=== PATIENT | female | born 1950 | race Caucasian/White ===

== ENCOUNTER 2016-12-06 07:38 | Day surgery (SDC) | payer MEDICAID ==
[~2016-12-06 07:38] MED LIST: ACETAMINOPHEN 325 MG TABLET PO PRN; ACETYLCHOLINE CHLORIDE 20 DROP KIT IO PRN; BUPIVACAINE HCL/PF 30 ML VIAL IJ PRN; CYCLOPENTOLATE HCL 20 DROP BTL RIGHTEYE PRN; DEXTROSE 5%-0.5 NORMAL SALINE 1,000 ML IV PRN; EPINEPHrine 1 MG/ML AMPUL IO PRN; HYALURONATE SODIUM 0.4 ML DISP.SYRIN IO PRN; HYALURONATE SODIUM 0.85 ML DISP.SYRIN IO PRN; LIDOCAINE HCL/PF 200 MG/5 ML AMPUL TP PRN; LIDOCAINE HCL/PF 5 ML VIAL IO PRN; NORMAL SALINE 3 ML BOX IV PRN; TETRACAINE HCL 150 DROP BTL OP PRN
[2016-12-06] MEDS: TROPICAMIDE 150 DROP BTL RIGHTEYE PRN ×3 (07:55→08:23)
[2016-12-06] MEDS: PHENYLEPHRINE HCL 50 DROP BTL RIGHTEYE PRN ×3 (07:55→08:23)
[2016-12-06] MEDS ORDERED: RINGER'S SOLUTION,LACTATED 1,000 ML IV ONE ×2 (08:00→08:40)
[2016-12-06 10:23] VITALS: BP 132/68
== END 2016-12-06 07:39 | disposition home or self-care (01) ==
LOC: AMB 07:38
PROVIDERS: ATTEND Ophthalmology
PROC: 08RJ3JZ Replacement of Right Lens with Synthetic Substitute, Percutaneous Approach (ICD-10-PCS; principal; 2016-12-06 08:45)
DX: H26.8 Other specified cataract (principal); E11.9 Type 2 diabetes mellitus without complications; I10 Essential (primary) hypertension; F17.200 Nicotine dependence, unspecified, uncomplicated; Z68.26 Body mass index [BMI] 26.0-26.9, adult

== ENCOUNTER 2019-01-03 06:30 | Inpatient (IN) ==
--- NOTE | 2018-12-27 08:33 | ANES ---
Anesthesia Pre Procedure Eval HOME MEDICATIONS aspirin 325 mg tablet,delayed release 325 mg PO DAILY tab 11/03/17 [Last Taken 11/15/17] cholecalciferol (vitamin D3) 2,000 unit capsule 4,000 unit PO DAILY cap 11/03/17 [Last Taken 11/15/17] melatonin 5 mg capsule 5 mg PO .bedtime cap 11/03/17 [Last Taken 11/15/17] metformin 500 mg tablet 1,000 mg PO BID #360 tab 12/12/17 [Last Taken Unknown] glimepiride 4 mg tablet 4 mg PO DAILY #90 tab 07/05/18 [Last Taken Unknown] albuterol sulfate HFA 90 mcg/actuation aerosol inhaler 2 puff IH QID PRN #3 ea 08/08/18 [Last Taken Unknown] latanoprost 0.005 % eye drops 1 drp OP BID #25 ml 09/12/18 [Last Taken Unknown] lisinopril 10 mg-hydrochlorothiazide 12.5 mg tablet See Rx Instructions .ROUTE .COMPLEX #90 tablet 11/22/18 [Last Taken Unknown] cephalexin 500 mg capsule 500 mg PO BID PRN 12/14/18 [Last Taken Unknown] Allergies/Adverse Reactions: Allergies Allergy/AdvReac Type Severity Reaction Status Date / Time hydrocodone [From Vicodin] AdvReac Intermediate hallucinati Verified 12/14/18 11:30 ons oxycodone AdvReac Intermediate "loopy" Verified 12/14/18 11:30 - Planned Procedure Planned Procedure: Right Total Knee Arthroplasty Medication List Reviewed:: Yes Allergies Verified: Yes Medical History (Updated 12/14/18 @ 11:28 by Luiz Rivera MD) Osteoarthritis of knee (Chronic) Hypertension (Chronic) Onset Date: Unknown DJD (degenerative joint disease) (Chronic) Onset Date: Unknown left hip Diabetic retinopathy (Chronic) Onset Date: ~01/2009 dx w/non-proliferative diabetic retinopathy, mild, by dilated exam Diabetes mellitus (Chronic) Onset Date: Unknown Asthma Onset Date: Unknown Endometrial cancer Onset Date: ~1991 Osteoporosis Onset Date: ~2018 Vitamin D deficiency Onset Date: Unknown Insomnia Onset Date: ~03/18/09 Malignant neoplasm of endocervix Onset Date: Unknown Surgical History (Updated 06/28/18 @ 11:39 by Majo Larkin RN) History of colonoscopy Onset Date: 09/25/10 09/25/1062-[id number]. History of endometrial biopsy Onset Date: ~1989 History of excision of epidermal inclusion cyst Onset Date: 11/16/17 Armaan-right groin History of hip replacement Onset Date: 05/18/11 [place]-left History of hysterectomy Onset Date: ~1990 ADDI BSO History of incision and drainage Onset Date: 10/12/17 10/12/17 Riccardo-right inner thigh History of total knee replacement Onset Date: 05/18/11 left history of removal kidney stone Onset Date: Unknown stent Onset Date: 10/19/13 [facility]UDE TE[facility] and stenting of mid portion right superficial femoral artery Family History (Updated 12/05/18 @ 14:56 by Belkis Chaves LPN) Father , age [id number] type Heart disease Cancer prostate ca Aneurysm Hernia Mother , age 76-punctured lung Hypertension Alzheimers disease punctured lung Grandfather Cancer Grandmother Cancer Aunt Cancer Uncle Cancer Brother Alive and well - Family Anesthesia History Family History:: no untoward family reactions to anesthesia - Airway/Neck/Teeth Teeth Condition: missing Denture Type: None - Respiratory Respiratory History: asthma Smoking Status: Current every day smoker Discussed smoking cessation including day of surgery: Yes Sleep Apnea currently treated: No Sleep Apnea by current assessment: No - Cardiovascular Cardiac History: hypertension Tolerate Activity: Fair - Anesthesia Assessment and Plan ASA Class: PS, III Anesthesia Type Plan: General LMA Planned difficult intubation/equipment available: No - adductor canal block for postop analgesia. Pt requests general anesthesia
[~2019-01-03 06:30] MED LIST changes: -ACETAMINOPHEN 325 MG TABLET PO PRN; -ACETYLCHOLINE CHLORIDE 20 DROP KIT IO PRN; -BUPIVACAINE HCL/PF 30 ML VIAL IJ PRN; -CYCLOPENTOLATE HCL 20 DROP BTL RIGHTEYE PRN; -DEXTROSE 5%-0.5 NORMAL SALINE 1,000 ML IV PRN; -EPINEPHrine 1 MG/ML AMPUL IO PRN; -HYALURONATE SODIUM 0.4 ML DISP.SYRIN IO PRN; -HYALURONATE SODIUM 0.85 ML DISP.SYRIN IO PRN; -LIDOCAINE HCL/PF 200 MG/5 ML AMPUL TP PRN; -LIDOCAINE HCL/PF 5 ML VIAL IO PRN; +MORPHINE SULFATE 15 MG TABLET.SA PO PRN; -NORMAL SALINE 3 ML BOX IV PRN; +RINGER'S SOLUTION,LACTATED 1,000 ML IV PRN; +ROPIVACAINE HCL/PF 100 MG, EPINEPHrine 0.2 MG, KETOROLAC TROMETHAMINE 30 MG in NORMAL S... IJ PRN; -TETRACAINE HCL 150 DROP BTL OP PRN; +TRANEXAMIC ACID 1,000 MG in NORMAL SALINE 100 ML IV PRN; +ceFAZolin SODIUM 1 GM VIAL IV PRN
[2019-01-03] MEDS ORDERED: INSULIN REGULAR, HUMAN 100 UNITS/ML VIAL IV ONE (07:23)
[2019-01-03] MEDS ORDERED: MORPHINE SULFATE 15 MG TABLET.SA PO ONE (07:30)
[2019-01-03] MEDS ORDERED: PROCHLORPERAZINE EDISYLATE 5 MG/ML VIAL IV PRN (07:37)
[2019-01-03] MEDS ORDERED: ONDANSETRON HCL/PF 2 MG/ML VIAL IV PRN ×2 (07:37→09:24)
[2019-01-03] MEDS ORDERED: HYDROmorphone HCL 2 MG/ML VIAL IV PRN (07:37)
[2019-01-03] MEDS ORDERED: NALOXONE HCL 0.4 MG/ML VIAL IV PRN (07:37)
[2019-01-03] MEDS ORDERED: diphenhydrAMINE HCL 50 MG/ML VIAL IV PRN ×2 (07:37→09:24)
[2019-01-03] MEDS ORDERED: MAGNESIUM HYDROXIDE 30 ML UDC PO PRN (09:24)
[2019-01-03] MEDS ORDERED: MAG HYDROX/ALUMINUM HYD/SIMETH 30 ML UDC PO PRN (09:24)
[2019-01-03] MEDS ORDERED: RINGER'S SOLUTION,LACTATED 1,000 ML IV PRN (09:24)
[2019-01-03] MEDS ORDERED: MORPHINE SULFATE 2 MG/ML DISP.SYRIN IV PRN (09:24)
[2019-01-03] MEDS ORDERED: ACETAMINOPHEN 500 MG TABLET PO PRN (09:24)
[2019-01-03] MEDS ORDERED: ZOLPIDEM TARTRATE 5 MG TABLET PO PRN (09:24)
[2019-01-03] MEDS ORDERED: MORPHINE SULFATE 10 MG/0.5 ML SYRINGE PO PRN (09:24)
[2019-01-03] MEDS ORDERED: ALBUTEROL SULFATE 2.5 MG/0.5 ML VIAL.NEB IH PRN (09:26)
--- NOTE | 2019-01-03 09:29 | OR ---
Operative Report - Dictated Report Narrative: Date: 01/03/2019 Preoperative diagnosis: Right knee degenerative joint disease. Postoperative diagnosis: Right knee degenerative joint disease. Procedure: Right total knee arthroplasty. Surgeon: Luiz Rivera M.D. Guzzler Builder: Darrel Colon PA-C (provided and essential set of skilled, educated hands that assisted with transfer, positioning, prepping, draping, manipulation, retraction, placement of jigs, injection, insertion of implants, irrigation, closure wounds, and dressings all of which could not be performed by the available surgical crew) Anesthesia: Spinal with regional block and local periarticular joint injection. Complications: None Specimens: Bone. Estimated blood loss: Minimal. Tourniquet time: 90 Minutes at 300 millimeters of mercury. Retained implants: Depuy Attune size 5 narrow right lugged cemented posterior stabilized femoral component. Size 4 fixed-bearing cemented tibial platform. 5 by 5 millimeter posterior stabilized cross-linked tibial insert. 35 millimeter medialized patella button. Indications: Mrs. Whelan is a 68-year-old female who has had long-standing right knee pain and arthrosis. This patient was followed in my clinic for period of time with significant complaints of right knee pain consistent with arthritic changes. She had failed conservative measures including, but not limited to, activity modification, passage of time, medications, and other conservative measures. Patient wished to proceed with surgical treatment. The risks, benefits, and alternatives were discussed in clinic. The risks of , blood clots, bleeding, infection, nerve/tendon blood vessel/ injury, malposition of components, intraoperative fracture, postoperative limited range of motion, persistent pain, failure of components, and need for additional procedures. Patient wished to proceed consent was obtained after answering all questions. Procedure: After marking the correct extremity on the floor, the patient was taken to the operating room. A timeout was performed. IV antibiotics consisting of Ancef were administered prior to the procedure. A regional followed by spinal anesthetic was induced by anesthesia, per my request, on the operative table with all bony prominences well-padded. Nash catheter was placed, and a bump was placed under the operative side buttock. SCDs and MARY hose were utilized on the nonoperative leg. A well-padded tourniquet was applied to the operative thigh. The operative leg was then pre-scrubbed with alcohol, prepped, and draped in a standard sterile fashion. After exsanguinating the extremity with an Esmarch bandage, the tourniquet was inflated. After marking out the anterior knee for standard incision centered over the patella, the skin was incised and dissected down to the joint retinaculum. The joint retinaculum was marked out as well as the horizontal axis of the patella, and a standard medial parapatellar arthrotomy was then made. The most proximal aspect of the quadriceps tendon and the patella tendon insertion were protected from release. A partial synovectomy was performed as well as a resection of the infrapatellar fat pad. The distal femoral fat pad proximal to the trochlea was also resected using cautery. The soft tissues were elevated off the medial aspect of the proximal tibia using a Crain elevator ensuring that we did not transect the medial collateral ligament. Upon initial evaluation range of motion was approximately 0 degrees to 130 degrees of flexion. There were signs of advanced arthrosis in the medial and patellofemoral joint spaces. There were large marginal osteophytes which were removed with a rongeur. The knee was hyperflexed and the patella was tucked laterally. Protecting the surrounding soft tissues with Homans, an entry drill was placed down the femoral canal using Whitesides line for guidance into the entry point. The intramedullary femoral alignment davion was utilized in order to cut the distal femur in 5 degrees of valgus resecting 10 millimeters of bone. Next the distal femur was sized to a size 5. A posterior referencing guide was utilized to place the distal femoral cutting block in 3 degrees of external rotation. This was pinned into place. The rotation was confirmed both visually and based on anatomic landmarks. The 4 in 1 cutting jig of the appropriate size was utilized in order to make all bony cuts. The angle wing was used to ensure no notching. Retractors were utilized in order to protect surrounding soft tissues. This cut did not result in any excessive notching. We then cut the box centered over the distal femur. This allowed for resection of the anterior and posterior cru ciate ligaments. I then turned my attention to the preparation of the tibia. Using an extra medullary tibial alignment davion, 3 millimeters of bone was resected off the medial articular surface. This was made perpendicular to the mechanical axis of the joint with the alignment davion centered over the ankle mortise. The alignment davion was checked and was noted to be parallel to the mechanical axis, centered over the medial one third of the tibial tubercle, paralleling the anterior surface of the tibia. We then turned our attention to the remaining meniscus and soft tissues. These were removed while protecting the surrounding ligaments and soft tissues. The marginal osteophytes off the anterior, posterior, medial, lateral aspects of the femur and tibia were removed. The tibia was sized out to a size 4. Next the tibia was drilled and punched in an externally rotated position. Next the trial femur and a series of tibial inserts were utilized in order to allow for full extension and maximal flexion. It was found that a 5 millimeter insert gave the best range of motion and stability at multiple flexion points as well as at full extension there was less than 2 mm of gapping both medially and laterally. There is minimal anterior translation with the knee at 90 degrees of flexion and no signs of being able to dislocate the knee. The patella was then prepared. The initial thickness was 21 millimeters. This was reamed down to 12 millimeters parallel to the anterior surface of the patella. It was sized out to a size 35 medialized patella button. This was then drilled and trialed. Without any medial restraint the patella tracked appropriately and did not sublux or dislocate. At this point, it was felt these were the appropriate sized implants, and all trials were removed. The standard periarticular joint injection consisting of ropivacaine, Toradol, and epinephrine were injected into the periarticular joint tissues. The bony surfaces were thoroughly irrigated with a pulsatile-suction saline irrigation device. A bone plug from the prior resected anterior chamfer cut was placed into the drill hole at the distal femur. The bony surfaces were then dried in preparation for placement of the implants. The cement was vacuum mixed per the trawl net maker's instructions. The cement was placed on the dry bony surfaces and posterior aspect of the implants. The implants were impacted into place, removing all extruded cement. At this point anesthesia administered tranexamic acid per protocol intravenously. The knee was placed in extension with axial loading with the trial insert while the cement cured. Once the cement cured, all remaining extruded cement was removed. The knee was placed through a range of motion with the trial insert to ensure appropriate range of motion and stability. Final range of motion was approximately 0 to 130 degrees. The knee was again thoroughly irrigated with pulsatile saline lavage. The final polyethylene insert was then impacted into place ensuring no retained soft tissues. The remaining periarticular joint injection was injected. A medium Hemovac drain was placed exiting superior laterally. The knee was then placed over a triangle and the arthrotomy was closed with interrupted #1 Vicryl after thoroughly irrigating the joint. The deep and subcutaneous tissues were closed with interrupted 0 and 3-0 Vicryl respectively. Skin was closed with a running subcutaneous 3-0 Monocryl and Prineo Dermabond dressing. 4 x 4's, Sof-Rol, and a full leg Cruz wrap were applied. All sponge, needle, blade, and instrument counts were correct prior to closing the wounds. Postoperative condition: The patient was awoken and transferred to the postanesthesia care unit in stable condition. Plan is to be admitted to the inpatient medical/surgical floor postoperatively for 24 hours of IV antibiotics, physical therapy, occupational therapy, and medical comanagement. Patient will be weightbearing as tolerated with range of motion as tolerated. DVT prophylaxis will be with SCDs, MARY hose, and pharmacological anticoagulation. Anticipated hospital stay is approximately 1-3 days.
[2019-01-03] MEDS ORDERED: NON-FORMULARY 1 DOSE DOSE (Lisinopril/Hydrochlorothiazide [Lisinopril-Hctz 10-12.5 Mg Tab] PO SCH (09:30)
--- NOTE | 2019-01-03 09:52 | ANES ---
Post Anesthesia Discharge - Transfer of Care Transfer of Care handoff given to nurse: Yes - Discharge from PACU Discharge from PACU when meets criteria: Yes - Discharge to ASU Discharge to ASU-no complications/pt stable: Yes
--- NOTE | 2019-01-03 10:08 | ANES ---
Post Anesthesia Assessment - Vital Signs Vitals: Last Vital Signs Temp 36.7 C 01/03/19 10:05 Pulse 91 01/03/19 10:05 Resp 22 H 01/03/19 10:05 BP 149/63 01/03/19 10:05 Pulse Ox 100 01/03/19 10:05 Airway Patency: Normal - Mental Status Level Of Consciousness: Awake - Pain Level Pain Score: 0 - N/V Assessment Nausea/Vomiting Presence: None Dehydration:: No
[2019-01-03] MEDS: KETOROLAC TROMETHAMINE 15 MG/ML VIAL IV SCH ×3 (10:30→22:36)
[2019-01-03] MEDS: ceFAZolin SODIUM 1 GM in DEXTROSE 5 % IN WATER 100 ML IV SCH ×6 (10:31→22:37)
[2019-01-03] MEDS: HYDROCHLOROTHIAZIDE 12.5 MG CAPSULE PO SCH (10:32)
[2019-01-03] MEDS: LISINOPRIL 10 MG TABLET PO SCH (10:33)
[2019-01-03] MEDS: SENNOSIDES/DOCUSATE SODIUM 1 TAB TABLET PO SCH (20:57)
[2019-01-03] MEDS: LATANOPROST 25 DROP BTL OP SCH (20:58)
[2019-01-03] MEDS: MORPHINE SULFATE 15 MG TABLET.SA PO SCH (20:58)
[2019-01-04] MEDS: KETOROLAC TROMETHAMINE 15 MG/ML VIAL IV SCH ×4 (04:33→22:49)
[2019-01-04 05:25] LABS: Hematocrit 40.3 % (37.0-47.0); Hemoglobin 13.3 gm/dL (12.5-16.0); Mean Cell Volume 93.5 fl (78-100); Mean Corpuscular Hemoglobin 30.9 pg (27-31); Mean Platelet Volume 11.1 fl (8-12.5); Platelet Count 230 K/mm3 (150-450); Red Blood Count 4.31 M/mm3 (4.2-5.4); Red Cell Distribution Width 13.5 % (11.5-14.0); White Blood Count 12.7 K/mm3 (4.0-10.5)
[2019-01-04 05:31] LABS: BUN/Creatinine Ratio 14.4 (9.0-21.6); Calcium * 8.6 mg/dL (7.9-10.9); Estimated Creat Clear 50.1
[2019-01-04] MEDS: GLIMEPIRIDE 4 MG TABLET PO SCH (07:07)
[2019-01-04] MEDS: ENOXAPARIN SODIUM 40 MG/0.4 ML SYRG SC SCH (08:24)
[2019-01-04] MEDS: LISINOPRIL 10 MG TABLET PO SCH (08:25)
[2019-01-04] MEDS: HYDROCHLOROTHIAZIDE 12.5 MG CAPSULE PO SCH (08:25)
[2019-01-04] MEDS: CHOLECALCIFEROL 1,000 UNIT CAPSULE PO SCH (08:25)
[2019-01-04] MEDS: LATANOPROST 25 DROP BTL OP SCH ×2 (08:26→20:49)
[2019-01-04] MEDS: MORPHINE SULFATE 15 MG TABLET.SA PO SCH ×2 (08:34→20:47)
[2019-01-04] MEDS ORDERED: CALCIUM CARBONATE 500 MG TAB.CHEW PO PRN (12:01)
--- NOTE | 2019-01-04 16:35 | PN ---
Subjective - Date and Time Seen Date: 01/04/19 Time: 07:45 Subjective Narrative: Subjective: Reports minimal pain. Was able to get up to the chair with therapy. Pain is well-controlled. Voiding without any complications. Tolerating by mouth intake. Denies any nausea or vomiting. Denies calf pain. Slept well. Physical exam: Alert and oriented to person, place and time Right lower extremity: Palpable dorsalis pedis pulse. Sensation grossly intact to light touch. Dressings clean and dry. Able to flex and extend ankle and toes. No excessive drainage. Calf and thigh are soft and nontender. Assessment: Postop day 1 status post right total knee arthroplasty. Plan: Due to the need for pain control, post-operative limited mobility, protection of the surgical site and joint, monitoring of the wound, and the management of chronic medical conditions, she requires continued inpatient care. Continue with physical and occupational therapy weightbearing as tolerated. Continue with anticoagulation. 24 hours postoperative prophylactic antibiotics. Pain control with goal to rely on oral medications. Continue bowel regimen. Will need 6 weeks with walker or assitive device to protect joint while ambulating during the recovery process. Discharge planning. Discontinue Nash catheter. She was having some heartburn type symptoms and Tums will be started. We are looking into skilled therapy at a nursing facility on Tuesday if available. Objective - Vitals Vitals: Last Vital Signs Temp 36.8 C 01/04/19 13:44 Pulse 82 01/04/19 13:44 Resp 20 01/04/19 13:44 BP 122/59 01/04/19 13:44 Pulse Ox 96 01/04/19 13:44 - Abnormal Lab Findings Abnormal Lab Findings: Abnormal Lab Results 01/04/19 01/04/19 Range/Units 05:23 05:23 WBC 12.7 H (4.0-10.5) K/mm3 Est GFR (Non-Af Amer) 56 L (60-130) mL/min Random Glucose 155 H (70-110) mg/dL Cauti Physician Documentation - Urinary Catheter Management Urethral (Nash) Date of Insertion: 01/03/19 Time of Insertion: 07:50 Date of Removal: 01/04/19 Time of Removal: 07:10 Assessment/Plan - Problems/Diagnosis (1) Status post total right knee replacement Problem: Acute (2) Acute blood loss anemia Problem: Acute (3) Diabetes mellitus Problem: Chronic (4) Diabetic retinopathy Problem: Chronic (5) Hypertension Problem: Chronic (6) Asthma Problem: Chronic (7) Insomnia Problem: Chronic (8) Cervical cancer Problem: Chronic
[2019-01-04] MEDS: SENNOSIDES/DOCUSATE SODIUM 1 TAB TABLET PO SCH (20:47)
[2019-01-05] MEDS: KETOROLAC TROMETHAMINE 15 MG/ML VIAL IV SCH (04:39)
[2019-01-05] MEDS: GLIMEPIRIDE 4 MG TABLET PO SCH (06:47)
[2019-01-05] MEDS: ENOXAPARIN SODIUM 40 MG/0.4 ML SYRG SC SCH (09:40)
[2019-01-05] MEDS: CHOLECALCIFEROL 1,000 UNIT CAPSULE PO SCH (09:42)
[2019-01-05] MEDS: HYDROCHLOROTHIAZIDE 12.5 MG CAPSULE PO SCH (09:45)
[2019-01-05] MEDS: LISINOPRIL 10 MG TABLET PO SCH (09:45)
[2019-01-05] MEDS: LATANOPROST 25 DROP BTL OP SCH ×2 (09:46→22:43)
[2019-01-05] MEDS: MORPHINE SULFATE 15 MG TABLET.SA PO SCH ×2 (09:48→22:54)
[2019-01-05] MEDS ORDERED: ONDANSETRON HCL 4 MG TABLET PO PRN (12:36)
--- NOTE | 2019-01-05 14:17 | PN ---
Subjective - Date and Time Seen Date: 01/05/19 Time: 15:35 Subjective Narrative: Subjective: Reports minimal pain. Was able to walk in the esparza with therapy. Pain is well-controlled. Voiding without any complications. Tolerating by mouth intake. Had an episode of nausea and vomiting. Denies calf pain. Slept well. Physical exam: Alert and oriented to person, place and time Right lower extremity: Palpable dorsalis pedis pulse. Sensation grossly intact to light touch. Able to flex and extend ankle and toes. No excessive drainage. Calf and thigh are soft and nontender. Assessment: Postop day 2 status post right total knee arthroplasty. Plan: Due to the need for pain control, post-operative limited mobility, protection of the surgical site and joint, monitoring of the wound, and the management of chronic medical conditions, she requires continued inpatient care. Continue with physical and occupational therapy weightbearing as tolerated. Continue with anticoagulation. Pain control with goal to rely on oral medications. Continue bowel regimen. Will need 6 weeks with walker or assitive device to protect joint while ambulating during the recovery process. Discharge planning. We are looking into skilled therapy at a nursing facility on Tuesday if available. Objective - Vitals Vitals: Last Vital Signs Temp 37.2 C 01/05/19 13:53 Pulse 93 01/05/19 13:53 Resp 16 01/05/19 13:53 BP 122/54 01/05/19 13:53 Pulse Ox 95 01/05/19 13:53 Cauti Physician Documentation - Urinary Catheter Management Urethral (Nash) Date of Insertion: 01/03/19 Time of Insertion: 07:50 Date of Removal: 01/04/19 Time of Removal: 07:10 Assessment/Plan - Problems/Diagnosis (1) Status post total right knee replacement Problem: Acute (2) Acute blood loss anemia Problem: Acute (3) Diabetes mellitus Problem: Chronic (4) Diabetic retinopathy Problem: Chronic (5) Hypertension Problem: Chronic (6) Asthma Problem: Chronic (7) Insomnia Problem: Chronic (8) Cervical cancer Problem: Chronic
[2019-01-05] MEDS: SENNOSIDES/DOCUSATE SODIUM 1 TAB TABLET PO SCH (22:43)
--- NOTE | 2019-01-06 06:42 | DS ---
(1) Diabetes mellitus Problem: Chronic (2) Status post total right knee replacement Problem: Acute (3) Acute blood loss anemia Problem: Acute (4) Asthma Problem: Chronic (5) Hypertension Problem: Chronic (6) DJD (degenerative joint disease) Problem: Chronic (7) Diabetic retinopathy Problem: Chronic Date of Discharge:: 01/06/19 Description of Stay: Mrs. Mari was admitted to the floor after undergoing a right total knee arthroplasty. Tolerated this well. Was admitted to the floor postoperatively for 24 hours of IV antibiotics, pain control, medical comanagement, and occupational and physical therapy. OT and PT were consulted to assist with activities of daily living and ambulation. Was made weightbearing as tolerated with range of motion as tolerated. Pain was initially controlled with IV regimen. This was transitioned to oral once tolerating a by mouth intake. Was resumed on home diet and medications. Had a Nash catheter inserted and the operating room which was discontinued on postoperative day 1. A drain was plac ed intraoperatively into the knee which was discontinued on postoperative day 1. Lovenox SCD and MARY hose were utilized for DVT prophylaxis. Vital signs remained stable to the hospital course. Serial labs were obtained which showed a final hemoglobin of 12.7 grams. BMP was reviewed and was stable. Physical examination throughout the hospital course showed an extremity that had sensation that was intact to light touch, palpable pulses, a benign wound, motor intact to the toes, ankle, and knee. Knee range of motion was approximately 5 degrees to 70 degrees. Once an oral pain regimen was tolerated and physical therapy goals were met, patient was discharged to [facility] for further skilled care. Instructions: Continue with weightbearing as tolerated and range of motion as tolerated. It is OK to shower on the wound if it is not draining. If you note any drainage or for comfort you can cover with dry gauze and tape. Change every 2-3 days as needed. Continue with physical therapy. Resume home diet. Report any fever over 101.5 Fahrenheit, uncontrolled pain, increased drainage, foul odor of drainage, new or increased calf pain or shortness of breath, or any other significant complaints. A 325mg dialy aspirin will be started after finishing anticoagulation if not allergic. Continue with MARY hose on the operative extremity until instructed otherwise. No driving until instructed otherwise. Follow up in approximately 10-14 days. Procedures Performed: see notes below List Procedures: Right total knee arthroplasty Results and Findings: Lab Pending Results 01/04/19 05:23: WBC 12.7 H, RBC 4.31, Hgb 13.3, Hct 40.3, MCV 93.5, MCH 30.9, MCHC 33.0, RDW 13.5, Plt Count 230, MPV 11.1 01/04/19 05:23: Sodium 138, Plasma Sodium 139, Potassium 4.0, Chloride 102, Carbon Dioxide 30.0, Anion Gap 10.0, BUN 15, Creatinine 1.04, Est GFR (Non-Af Amer) 56 L, BUN/Creatinine Ratio 14.4, Random Glucose 155 H, Calcium 8.6 Discharge Location: [facility] Disposition: SNF Condition: Good Level of Care: SNF Discharge Activity: Activity as tolerated, Weight bearing - With wheeled walker Discharge Diet: Consistent carbs, Low salt [facility] Therapy: Physical Therapy, Occupation Therapy Referrals: Luiz Rivera MD [Staff Physician] - 01/23/19 9:00 am Problem Oriented Discharge Instructions to Patient/Family: Total Knee Replacement, Care After, [id number] Additional Patient Instructions (free text): To [facility] for SNF at discharge, PT and OT to evaluate and treat. Please fax dc orders to [facility]. Follow up in Orthopedic office with Dr. Rivera on Tuesday01/23/19 at 9:00a.m. Prescriptions (Any new or edited meds): Enoxaparin Sodium [Lovenox] 40 mg SC Q24H #5 disp.syrin Morphine Sulfate 1 tab PO Q4H PRN #80 tab PRN Reason: Pain Morphine Sulfate [Ms Contin] 15 mg PO Q12H #20 tablet.sa Sennosides/Docusate Sodium [Senokot-S] 2 tab PO HS #30 tab Complete Home Medications List: Complete Home Medication List: aspirin 325 mg tablet,delayed release 325 mg PO DAILY tab 11/03/17 cholecalciferol (vitamin D3) 2,000 unit capsule 4,000 unit PO DAILY cap 11/03/17 melatonin 5 mg capsule 10 mg PO .bedtime cap 11/03/17 metformin 500 mg tablet 1,000 mg PO BID #360 tab 12/12/17 glimepiride 4 mg tablet 4 mg PO DAILY #90 tab 07/05/18 albuterol sulfate HFA 90 mcg/actuation aerosol inhaler 2 puff IH QID PRN #3 ea 08/08/18 latanoprost 0.005 % eye drops 1 drp OP BID #25 ml 09/12/18 lisinopril 10 mg-hydrochlorothiazide 12.5 mg tablet See Rx Instructions .ROUTE .COMPLEX #90 tab 11/22/18 cephalexin 500 mg capsule 500 mg PO BID PRN 12/14/18 Acetaminophen [Tylenol] 1,000 mg PO Q6H PRN tablet 01/06/19 Enoxaparin Sodium [Lovenox] 40 mg SC Q24H #5 disp.syrin 01/06/19 Morphine Sulfate 1 tab PO Q4H PRN #80 tab 01/06/19 Morphine Sulfate [Ms Contin] 15 mg PO Q12H #20 tablet.sa 01/06/19 Sennosides/Docusate Sodium [Senokot-S] 2 tab PO HS #30 tab 01/06/19
[2019-01-06] MEDS: GLIMEPIRIDE 4 MG TABLET PO SCH (07:00)
[2019-01-06] MEDS: ENOXAPARIN SODIUM 40 MG/0.4 ML SYRG SC SCH (09:09)
[2019-01-06] MEDS: CHOLECALCIFEROL 1,000 UNIT CAPSULE PO SCH (09:10)
[2019-01-06] MEDS: LISINOPRIL 10 MG TABLET PO SCH (09:10)
[2019-01-06] MEDS: HYDROCHLOROTHIAZIDE 12.5 MG CAPSULE PO SCH (09:10)
[2019-01-06] MEDS: LATANOPROST 25 DROP BTL OP SCH (09:11)
[2019-01-06] MEDS: MORPHINE SULFATE 15 MG TABLET.SA PO SCH (09:19)
[2019-01-06 09:50] VITALS: BP 99/54
== END 2019-01-06 10:00 | DRG 470 ==
LOC: MS 06:30 → EDSTATUS 08:00
PROVIDERS: ADMIT Orthopaedic Surgery; ATTEND Orthopaedic Surgery
CPT/HCPCS: 36415; 73560; 80048; 85027; 97110; 97116; 97161; 97165; 97530